=== PATIENT | female | born 1990 | race African-American/Black ===

== ENCOUNTER 2016-11-28 13:29 | Emergency (ER) | payer SELFPAY ==
[~2016-11-28] VITALS: Ht 167.6 cm; Wt 61.4 kg
[2016-11-28 13:38] VITALS: BP 128/75; TEMP 98.1
[2016-11-28] MEDS ORDERED: ULTRAM 50MG TAB50 MG PO (14:28)
[2016-11-28 15:15] VITALS: PULSE 78
== END 2016-11-28 15:16 | disposition home or self-care (01) ==
LOC: COL.ER 13:29
DX: S93.402A Sprain of unspecified ligament of left ankle, initial encounter (principal); S90.32XA Contusion of left foot, initial encounter; Z59.0 Homelessness; W10.9XXA Fall (on) (from) unspecified stairs and steps, initial encounter

== ENCOUNTER 2017-03-14 14:34 | Emergency (ER) | payer OTHER ==
[~2017-03-14] VITALS: Ht 167.6 cm; Wt 61.4 kg
[~2017-03-14 14:34] MED LIST: ULTRAM 50MG TAB50 MG PO
[2017-03-14 14:36] VITALS: BP 126/78; TEMP 99
[2017-03-14 15:21] LABS: BASO % 0.6 % (0.0-2.0); EOS % 0.5 % (0-4.0); HEMATOCRIT 38.8 % (37.0-47.0); HEMOGLOBIN 12.6 g/dl (12.5-16.0); LYMPH % 30.5 % (20.0-51.0); MEAN CELL VOLUME 81 fl (80.0-100.0); MEAN CORPUSCULAR HEMOGLOBIN 26 pg (27.0-31.0); MEAN CORPUSCULAR HGB CONC 33 g/dl (33.0-37.0); MEAN PLATELET VOLUME 9.4 fl (7.4-10.4); MONO # 0.5 (0.1-0.6); MONO % 7.1 % (1.7-9.3); PLATELET COUNT 265 K/mm3 (130-400); RED BLOOD COUNT 4.81 M/mm3 (4.10-5.30); REDCELL DISTRIBUTION WIDTH-CV 15.2 % (11.5-14.5)
[2017-03-14 15:25] LABS: COLLECTION METHOD CLEAN CATCH
[2017-03-14 15:53] LABS: MUCOUS Present /lpf; PH 6 (5-8); SQUAMOUS EPITHELIAL 20-50 /hpf; URINE APPEARANCE Cloudy; URINE BACTERIA Moderate /hpf; URINE BILIRUBIN Negative (NEGATIVE); URINE BLOOD Negative (NEGATIVE); URINE COLOR Yellow; URINE GLUCOSE Negative (NEGATIVE); URINE KETONE Negative (NEGATIVE); URINE LEUKOCYTE ESTERASE 3+ (NEGATIVE); URINE NITRATE Negative (NEGATIVE); URINE PROTEIN(semi-quant) Negative (NEGATIVE); URINE UROBILINOGEN Negative (NEGATIVE)
[2017-03-14] MEDS ORDERED: MACROBID 1100 MG/CAP PO (16:24)
[2017-03-14 17:05] VITALS: PULSE 86
== END 2017-03-14 17:06 | disposition home or self-care (01) ==
LOC: COL.ER 14:34
PROVIDERS: Physician Assistant
DX: O98.61 Protozoal diseases complicating pregnancy (principal); A59.9 Trichomoniasis, unspecified; Z3A.01 Less than 8 weeks gestation of pregnancy; Z98.890 Other specified postprocedural states
CPT/HCPCS: J0696